=== PATIENT | male | born 1955 | race Caucasian/White ===

== ENCOUNTER 2017-04-03 08:07 | Inpatient (IN) | END 2017-04-07 12:05 | disposition home or self-care (01) | DRG 379 | DX: K92.0 Hematemesis (principal); R13.10 Dysphagia, unspecified; I10 Essential (primary) hypertension; R47.02 Dysphasia; E11.9 Type 2 diabetes mellitus without complications; F41.9 Anxiety disorder, unspecified; F19.10 Other psychoactive substance abuse, uncomplicated; K20.9 Esophagitis, unspecified; K44.9 Diaphragmatic hernia without obstruction or gangrene; K29.70 Gastritis, unspecified, without bleeding ==